=== PATIENT | male | born 1955 | race Caucasian/White ===

== ENCOUNTER 2017-01-29 12:28 | Emergency (ER) | payer BC ==
[~2017-01-29] VITALS: Ht 182.9 cm; Wt 133.8 kg
[~2017-01-29 12:28] MED LIST: ASPIRIN EC81 MG PO; DIOVAN320 MG PO; FLOMAX0.4 MG PO; HYDROCHLOROTHIA25 MG PO; LEVOTHROID200 MCG PO; LEVOTHYROXINE25 MCG PO; PAXIL10 MG PO; PERCOCET 5-3251 EACH PO; VITAMIN D32000 UNIT PO; ZOCOR40 MG PO
[2017-01-29] MEDS ORDERED: NORCO 10-325 T1 EACH PO (14:12)
[2017-01-29] MEDS ORDERED: FLOMAX0.4 MG PO (14:12)
== END 2017-01-29 14:42 | disposition home or self-care (01) ==
LOC: ED 12:28
DX: N13.2 Hydronephrosis with renal and ureteral calculous obstruction (principal); I10 Essential (primary) hypertension; Z87.442 Personal history of urinary calculi; Z91.041 Radiographic dye allergy status; Z88.8 Allergy status to other drugs, medicaments and biological substances; Z79.82 Long term (current) use of aspirin; Z79.899 Other long term (current) drug therapy
CPT/HCPCS: 74176; 80053; 81001; 85025; 96361; 96374; 96375; 99284; J1170; J1885; J2405; J7030

== ENCOUNTER 2017-03-07 16:38 | Emergency (ER) | payer BC ==
[~2017-03-07] VITALS: Ht 182.9 cm; Wt 133.8 kg
[~2017-03-07 16:38] MED LIST changes: +NORCO 10-325 T1 EACH PO
[2017-03-07] MEDS ORDERED: NORCO 10-325 T1 EACH PO (19:13)
[2017-03-07] MEDS ORDERED: FLOMAX0.4 MG PO (19:13)
== END 2017-03-07 19:44 | disposition home or self-care (01) ==
LOC: ED 16:38
DX: N13.2 Hydronephrosis with renal and ureteral calculous obstruction (principal); Z87.442 Personal history of urinary calculi; Z91.041 Radiographic dye allergy status; Z88.8 Allergy status to other drugs, medicaments and biological substances; Z79.899 Other long term (current) drug therapy
CPT/HCPCS: 74176; 80048; 81001; 85025; 96374; 96375; 96376; 99284; J1170; J2405; J7030

== ENCOUNTER 2017-08-06 05:50 | Day surgery (SDC) | payer BC ==
[~2017-08-06] VITALS: Ht 182.9 cm; Wt 136.1 kg
[~2017-08-06 05:50] MED LIST changes: +DOXYCYCLINE HY100 MG PO
--- NOTE | 2017-08-06 08:49 | NUR ---
08/06/17 0849 Ana Walker 0824 PT ARRIVED WITH EYES OPEN AND TALKING, RESP EVEN AND UNLABORED. 0839 O2 REMOVED O2 SAT 100%. PT COUGHING OFF AND ON. AND ENCOURGED TO DEEP BREATH.
--- NOTE | 2017-08-06 09:34 | NUR ---
PT ARRIVES TO DS RM 5 AWAKE AND ALERT. PT DENIES ANY PAIN OR NAUSEA ON ARRIVAL. ICED WATER AND CRACKERS PROVIDED. CALL LIGHT AT PT LEFT SIDE, NO FURTHER C/O'S AT THIS TIME.
[2017-08-06] MEDS ORDERED: CIPRO500 MG PO (09:58)
--- NOTE | 2017-08-06 10:18 | NUR ---
PT RESTING COMFORTABLY, ALERT, ORIENTED AND SUPPORTED BY HIS ARNAV. VERY PLEASANT VISIT, PT HAS DEALT WITH STONES BEFORE. CAME IN, EXTENDED A BLES- SING WILL FOLLOW NEEDED
--- NOTE | 2017-08-06 10:48 | NUR ---
[id number]: PT TOLERATES PO WELL. UP TO BR WITH RN ASSIST. PT AMBULATES WELL AND VOIDS 200 MLS PINK-RED URINE. PT STATES THAT IT "PECK A LITTLE" WHEN VOIDING. DC CRITERIA MET AND , ARNAV CALLED FOR TRANSPORT. PT GIVEN DC INSTRUCTIONS AND ALL QUESTIONS ANSWERED. PT DC'S VIA WHEELCHAIR FROM DS RM 5 WITH VOLUNTEER, ZULEMA.
--- NOTE | 2017-08-08 19:51 | OR ---
[facility] [address], [place] [address] Signed DATE OF OPERATION: 08/06/2017 SURGEON: Aidan Martinez MD PREOPERATIVE DIAGNOSIS: Right ureterolithiasis. POSTOPERATIVE DIAGNOSIS: Right ureterolithiasis, status post successful trial of passage. NAMES OF PROCEDURES: 1. Diagnostic cystoscopy with right retrograde pyelogram. 2. Basket extraction of ureteral calculus from bladder. ANESTHESIA: General. ESTIMATED BLOOD LOSS: None. COMPLICATIONS: None. SPECIMENS: 1.2 cm right ureteral calculus sent to the lab for stone analysis. DRAINS: None. INDICATIONS FOR PROCEDURE: Mr. Hardy is a very pleasant 61-year-old gentleman with a longstanding history of nephrolithiasis. He initially presented to me in February with intermittent bouts of right-sided flank pain. He was found to have an approximately 8 mm right proximal ureteral calculus at that time. He returned to my clinic about a month later stating that he felt as though he had passed the stone. Approximately a month ago, he again reported issues with right-sided flank pain, but denied any fevers or chills. About a week ago, he came to the clinic with an episode of gross hematuria. His urine was sent for culture and revealed no growth. After visiting with him, I was convinced that he had never successfully passed the proximal right ureteral stone seen initially on CAT scan in February . He presents today to undergo ureteroscopy with definitive Electronically Signed By: AIDAN MARTINEZ MD 08/08/171950 PATIENT NAME: DEANN HARDY OPERATIVE REPORT DATE OF : 51 REPORT #: [id number] PHYSICIAN: AIDAN MARTINEZ MD PCP: Shamika PEREZ MD REPORT IS CONFIDENTIAL AND NOT TO BE RELEASED WITHOUT AUTHORIZATION [facility] [address], [place] [address] Signed stone extraction. OPERATIVE FINDINGS: 1. On cystoscopy, there was no evidence of any suspicious masses or lesions within the bladder. Bilateral ureteral orifices are in the normal anatomic location. The right ureteral orifice appears ecchymotic and swollen, suggesting recent passage of a stone. Present within the bladder is an approximately 1 cm oblong shaped stone. This stone was extracted from the bladder using an Escape basket without difficulty. 2. A right retrograde pyelogram was performed, which revealed no evidence of any filling defect within the entire right ureter that would suggest any residual obstruction. DESCRIPTION OF PROCEDURE: After informed consent was obtained, the patient was taken back to the operating room. He was transferred from the [facility] the [facility] to the operating room table, where general anesthesia was induced. He was placed in the dorsal lithotomy position and his genitalia were prepped and draped in a standard sterile fashion. Using a 30-degree lens on a 22-Faroese introducer, rigid cystoscope was inserted through his urethra and into his bladder under direct visualization. Panendoscopic views of the bladder were then obtained. Please see the findings. I visualized the stone immediately that was located within the bladder. A Zero Tip basket was used to grasp the stone, which was then removed from the bladder and placed in a specimen cup. I reinserted the cystoscope and then advanced a cone-tipped catheter and then performed a right retrograde pyelogram. Please see above findings. Once I was satisfied that there was no evidence of any remaining obstruction within the right ureter, I drained the patient's bladder and removed the cystoscope. The procedure was then terminated. The patient tolerated the procedure well without any complication. He will now be transferred to the postanesthesia care unit in stable condition. MD JOAN Deng/JOSEPL /[id number] Copies: Electronically Signed By: AIDAN MARTINEZ MD 08/08/171950 PATIENT NAME: DEANN HARDY OPERATIVE REPORT DATE OF : 51 REPORT #: [id number] PHYSICIAN: AIDAN MARTINEZ MD PCP: Shamika PEREZ MD REPORT IS CONFIDENTIAL AND NOT TO BE RELEASED WITHOUT AUTHORIZATION [address] [place] [address] Signed ~ Electronically Signed By: AIDAN MARTINEZ MD 08/08/171950 PATIENT NAME: DEANN HARDY OPERATIVE REPORT DATE OF : 51 REPORT #: [id number] PHYSICIAN: AIDAN MARTINEZ MD PCP: Shamika PEREZ MD REPORT IS CONFIDENTIAL AND NOT TO BE RELEASED WITHOUT AUTHORIZATION
== END 2017-08-06 10:50 | disposition home or self-care (01) ==
LOC: DS 05:50
PROVIDERS: Urology
PROC: 0TCB8ZZ Extirpation of Matter from Bladder, Via Natural or Artificial Opening Endoscopic (ICD-10-PCS; principal; 2017-08-06 06:45)
PROC: BT1DYZZ Fluoroscopy of Right Kidney, Ureter and Bladder using Other Contrast (ICD-10-PCS; 2017-08-06 06:45)
DX: N20.1 Calculus of ureter (principal); E03.9 Hypothyroidism, unspecified; I10 Essential (primary) hypertension; E78.5 Hyperlipidemia, unspecified; G47.30 Sleep apnea, unspecified; F17.220 Nicotine dependence, chewing tobacco, uncomplicated; Z91.041 Radiographic dye allergy status; Z79.82 Long term (current) use of aspirin; Z79.899 Other long term (current) drug therapy; Z79.2 Long term (current) use of antibiotics
CPT/HCPCS: 00910; 36415; 74420; 80048; 82365; C1889; J0330; J0696; J1100; J2250; J2405; J2704; J3010; J7120; Q9967

== ENCOUNTER 2023-02-20 09:24 | Day surgery (SDC) | payer MEDICARE, BC ==
[2023-02-15 11:26] VITALS: BP 131/75
[~2023-02-20] VITALS: Ht 182.9 cm; Wt 150.0 kg
[~2023-02-20 09:24] MED LIST changes: +ALLOPURINOL100 MG PO; +ATORVASTATIN CA40 MG PO; +CELEBREX200 MG PO; +CENTRUM SILVER1 EAC9 PO; +CIPRO500 MG PO; +FLONASE ALLERG9.9 ML NAS; +FLUOCINONIDE60 ML TOP; +GLUCOSAMINE SU750 MG PO; +HYDROCODON-ACE1 EA10 PO; +KETOCONAZOLE120 ML TOP; +LOSARTAN POTAS100 MG PO; +MAGNESIUM250 M1 PO; +MINOCYCLINE HC100 MG PO; +PERMETHRIN60 GM TOP; +TURMERIC CURCU500 MG PO; +[UNRECOGNIZED DRUG - OTHER] TOP
[2023-02-20 09:39] VITALS: BP 146/81
[2023-02-20 12:16] VITALS: BP 144/89
--- NOTE | 2023-02-20 12:48 | NUR ---
02/20/23 1248 Carmen Murillo 1153 PT ARRIVED IN PACU WIDE AWAKE WITH NO C/O'S. ABD SOFT. 1209 DR AT BEDSIDE. ALL QUESTIONS ANSWERED. 1215 PT SITTING AT BEDSIDE GETTING DRESSED. 1220 DC INSTRUCTIONS GIVEN. 1225 LEFT VIA W/C.
--- NOTE | 2023-02-21 12:17 | PATH ---
[facility] [address] [facility] [place], [place] [address] Signed SPECIMEN(S): A SIGMOID POLYP SPECIMEN(S): B SIGMOID POLYP SPECIMEN(S): C SIGMOID POLYP SPECIMEN SOURCE: A. SIGMOID POLYP B. SIGMOID POLYP C. SIGMOID POLYP CLINICAL HISTORY: + Cologuard. Post: Polyps, diverticulosis. FINAL PATHOLOGIC DIAGNOSIS: A. Sigmoid polyp: - Hyperplastic polyp (one fragment). B. Sigmoid polyp: - Hyperplastic polyp (two fragments). C. Sigmoid polyp: - Hyperplastic polyp (two fragments). JVR:gregg MICROSCOPIC EXAMINATION: Histologic sections of all submitted blocks are examined by light microscopy. These findings, together with the gross examination, support the pathologic diagnosis. GROSS DESCRIPTION: A. The specimen, labeled and designated "Hardy, sigmoid colon polyp #1," is received in formalin and consists of three marsh soft tissue fragments, ranging from 0.1 cm. Entirely submitted in (A1). B. The specimen, labeled and designated "Hardy, sigmoid colon polyp #2," is received in formalin and consists of three marsh soft tissue fragments, ranging from 0.1-0.2 cm. Entirely submitted in (B1). C. The specimen, labeled and designated "Hardy, sigmoid colon polyp #3," is received in formalin and consists of two marsh soft tissue fragments, ranging from 0.2 cm. Entirely submitted in (C1). JS (under the direct supervision of a pathologist) The Gross Description was prepared using a voice recognition system. The report was reviewed for accuracy; however, sound-alike word errors, addition and/or deletions may occur. If there is any question about this report, please contact Client Services. PATIENT NAME: DEANN HARDY PATHOLOGY DATE OF : 51 REPORT #: [id number] PHYSICIAN: VIRGILIO PATHOLOGY PCP: CALE HICKS MD REPORT IS CONFIDENTIAL AND NOT TO BE RELEASED WITHOUT AUTHORIZATION [facility] [address] [facility] [place], [place] [address] Signed PERFORMING LABORATORY: Technical component was performed by [facility], [address] [place] [address] (CLIA# [id number]). Professional interpretation was performed by [facility] - [address] [address] (CLIA#: [id number]). Diagnostician: Cody Estevez MD Pathologist Electronically Signed 02/21/2023 Copies: ~ PATIENT NAME: DEANN HARDY PATHOLOGY DATE OF : 51 REPORT #: [id number] PHYSICIAN: VIRGILIO PATHOLOGY PCP: CALE HICKS MD REPORT IS CONFIDENTIAL AND NOT TO BE RELEASED WITHOUT AUTHORIZATION
--- NOTE | 2023-02-21 13:13 | OR ---
[facility] [address] [place], [place] [address] Signed DATE OF OPERATION: 02/20/2023 SURGEON: Tere Moreau MD PREOPERATIVE DIAGNOSES: 1. Positive Cologuard test. 2. Multiple medical problems. POSTOPERATIVE DIAGNOSES: 1. Small polyps x4, sigmoid and left colon. 2. Diverticulosis. PROCEDURE: Total colonoscopy to cecum with cold morcellation polypectomy x4. ANESTHESIA: Intravenous sedation, propofol infusion, [place], OB/GYN NURSE. INDICATION: This 67-year-old white man is a patient of Dr. Thomason. He is known to me from the past. He does have an umbilical hernia which has not yet been repaired. He underwent colonoscopy in 2012 at which time, he had a normal colon. He is referred for colonoscopy on the basis of recent positive Cologuard test performed under the direction of Dr. Thomason. He has no family history of colon cancer and no symptoms of bleeding, diarrhea or constipation. The patient does have numerous underlying medical problems including obesity weighing 310 pounds and an umbilical hernia and other problems. He is admitted to undergo colonoscopy on the basis of the positive Cologuard test. He understands the risk of bleeding, infection, and perforation. FINDINGS: The prep was good. Complete colonoscopy was undertaken to the cecum. Full intubation of the cecum was accomplished. He had diverticula of the sigmoid and left colon that were scattered and not intense. There was no sign of stricture. He had four small polyps extending from the sigmoid to the proximal rectum, all excised with cold morcellation technique. DESCRIPTION OF PROCEDURE: The patient was brought to the endoscopy suite and placed in the lateral decubitus position, given intravenous sedation to the point of slurred speech and nystagmus. Digital rectal examination was normal. Electronically Signed By: TERE MOREAU MD 02/21/23 1313 PATIENT NAME: DEANN HARDY OPERATIVE REPORT DATE OF : 51 REPORT #: [id number] PHYSICIAN: TERE MOREAU MD PCP: DEIDRA THOMASON MD REPORT IS CONFIDENTIAL AND NOT TO BE RELEASED WITHOUT AUTHORIZATION [facility] [address] [place], [place] [address] Signed An Olympus video colonoscope was passed in the rectum and manipulated throughout the colon. Numerous diverticula were noted in the sigmoid and left colon, but none extensive enough to cause stricture narrowing. The scope was ultimately passed to the cecum. The ileocecal valve was easily identified. Scope was then withdrawn. Examination undertaken showed no sign of abnormality until the left colon where diverticula were once again noted. There were four small polyps in aggregate which were excised from the sigmoid and proximal rectum. They were labeled appropriately. Retroflexed view of the rectum was normal. Scope was removed and the patient was taken to the recovery room in good condition. CONCLUDING DIAGNOSIS: Small polyps of sigmoid and left colon, completely excised. PLAN: Recommend repeat colonoscopy in 5 years, sooner if clinically indicated. The patient will return to the ongoing care of Dr. Thomason. MD MICK Bustos/SHARIFA /[id number] cc: Deidra Thomason MD Copies: ~ Electronically Signed By: TERE MOREAU MD 02/21/23 1313 PATIENT NAME: DEANN HARDY OPERATIVE REPORT DATE OF : 51 REPORT #: [id number] PHYSICIAN: TERE MOREAU MD PCP: DEIDRA THOMASON MD REPORT IS CONFIDENTIAL AND NOT TO BE RELEASED WITHOUT AUTHORIZATION
== END 2023-02-20 12:25 | disposition home or self-care (01) ==
LOC: DS 09:24 → OPS 09:24 → DS 10:00 → OPS 10:45
PROVIDERS: ATTEND Surgery
PROC: 0DBN8ZZ Excision of Sigmoid Colon, Via Natural or Artificial Opening Endoscopic (ICD-10-PCS; 2023-02-20)
PROC: 0DBP8ZZ Excision of Rectum, Via Natural or Artificial Opening Endoscopic (ICD-10-PCS; 2023-02-20)
PROC: 0DBG8ZZ Excision of Left Large Intestine, Via Natural or Artificial Opening Endoscopic (ICD-10-PCS; principal; 2023-02-20 11:00)
DX: Z12.11 Encounter for screening for malignant neoplasm of colon (principal); K63.5 Polyp of colon; N40.1 Benign prostatic hyperplasia with lower urinary tract symptoms; I10 Essential (primary) hypertension; E66.01 Morbid (severe) obesity due to excess calories; Z68.41 Body mass index [BMI] 40.0-44.9, adult; K57.30 Diverticulosis of large intestine without perforation or abscess without bleeding
CPT/HCPCS: 00811; 88305; J2001; J2704; J3010; J7121

== ENCOUNTER 2024-05-26 06:53 | Day surgery (SDC) | payer MEDICARE, BC ==
[2024-05-22 09:22] VITALS: BP 123/80
[~2024-05-26] VITALS: Ht 182.9 cm; Wt 124.5 kg
[~2024-05-26 06:53] MED LIST changes: +DEXAMETHASONE SOD PHOS 4 MG/ML VIAL ONE; +FAMOTIDINE 20 MG/ 2 ML VIAL ONE; +KETOROLAC TROMETHAMINE 30 MG/ML VIAL ONE; +LACTATED RINGER'S 1,000 ML IV ONE; +LACTATED RINGER'S 1,000 ML IV SCH; +METOCLOPRAMIDE HCL 10 MG/2 ML SDV ONE; +MIDAZOLAM HCL 2 MG/2 ML VIAL ONE; +fentaNYL citrate 100 MCG/2 ML VIAL ONE; +ondansetron HCL 4 MG/2 ML VIAL ONE; +propofoL 200 MG/20 ML VIAL ONE
[2024-05-26] MEDS ORDERED: CEFAZOLIN SODIUM 3 GM/30 ML SYR IV SCH (07:00)
[2024-05-26] MEDS ORDERED: LIDOCAINE HCL 1% 5 ML SDV INJ ONE (07:00)
[2024-05-26] MEDS ORDERED: IBLOOD GLUCOSE TEST STRIP 1 EA TEST VI PRN ×2 (07:00→11:30)
[2024-05-26] MEDS ORDERED: HYDROmorphone HCL 1 MG/ML SYR IV PRN (07:45)
[2024-05-26] MEDS ORDERED: OXYCODONE/APAP 5/325 TAB PO PRN (07:45)
[2024-05-26] MEDS ORDERED: KETOROLAC TROMETHAMINE 15 MG/ML VIAL IV PRN (07:45)
[2024-05-26] MEDS ORDERED: PHENAZOPYRIDINE HCL 100 MG TAB PO PRN (07:45)
[2024-05-26] MEDS ORDERED: ondansetron HCL 4 MG/2 ML VIAL IV PRN ×2 (07:45→11:30)
[2024-05-26] MEDS ORDERED: SEVOFLURANE 250 ML BTL INH ONE (07:50)
[2024-05-26 08:41] VITALS: BP 135/82
[2024-05-26] MEDS ORDERED: WEGOVY1 MG/0.5 M SQ (08:49)
[2024-05-26] MEDS ORDERED: iopamidoL 30 ML VIAL ONE ×2 (10:53→11:48)
[2024-05-26] MEDS ORDERED: LIDOCAINE HCL 4% 5 ML AMP ONE (11:18)
[2024-05-26] MEDS ORDERED: SUCCINYLCHOLINE IN 0.9% NACL 200 MG/10 ML SYRINGE ONE (11:18)
[2024-05-26] MEDS ORDERED: NALOXONE HCL 0.4 MG SYR IV PRN (11:30)
[2024-05-26] MEDS ORDERED: droPERidol 5 MG/2 ML VIAL IV PRN (11:30)
[2024-05-26] MEDS ORDERED: METOCLOPRAMIDE HCL 10 MG/2 ML SDV IV PRN (11:30)
[2024-05-26] MEDS ORDERED: MORPHINE SULFATE 10 MG/ML VIAL IV PRN (11:30)
[2024-05-26] MEDS ORDERED: PROCHLORPERAZINE EDISYLATE 10 MG/2 ML VIAL IV PRN (11:30)
[2024-05-26] MEDS ORDERED: fentaNYL citrate 50 MCG/ML SDV IV PRN (11:30)
[2024-05-26] MEDS ORDERED: SEVOFLURANE 250 ML BTL ONE (12:02)
[2024-05-26] MEDS ORDERED: FLUORESCEIN SODIUM 500 MG/5 ML ML ONE (12:29)
[2024-05-26] MEDS ORDERED: LACTATED RINGER'S 1,000 ML IV ONE (12:52)
[2024-05-26] MEDS ORDERED: FUROSEMIDE 40 MG/4 ML VIAL ONE (13:06)
--- NOTE | 2024-05-26 13:42 | NUR ---
05/26/24 1342 Tena Reid 1317-PT ARRIVES TO PACU VIA STRETCHER, RESTING SEMI FOWLERS, PT NOT RESPONISVE TO NOXIOUS STIMULI. VSS ON 15L VIA MASK, OPA IN PLACE. 1321-PT AWAKENS TO VOICE, OPA REMOVED AND PT TITRATED TO RA. VS REMAIN STABLE.
[2024-05-26 14:09] VITALS: BP 145/80
--- NOTE | 2024-05-26 14:10 | NUR ---
Patient returns to treatment room from PACU. Report taken from CHERYL Madsen. Patient is complaining of pain to his right flank, throat, and penis/urethra. Patient has already urinated in PACU. Patient has a urinal in place. He has a stent to the right ureter with the string attached to his thigh. Vital signs obtained. He states that he does not feel nauseous. water and jell-o provided to ensure patient is able to keep water/food down before I give him oral pain medication. Patient was able to keep it all down, so oral medication was given. Patient denies any other needs at this time. Call light within reach. patient is sitting on the edge of the bed as this is most comfortable for him at the moment.
[2024-05-26 15:03] VITALS: BP 150/77
[2024-05-26] MEDS ORDERED: OXYCODONE HCL5 MG PO (15:26)
[2024-05-26] MEDS ORDERED: CIPRO500 MG PO (15:26)
--- NOTE | 2024-05-26 16:15 | NUR ---
Hourly rounding on patient. Patient's is here to pick and shovel worker the patient. Patient asked for me to review discharge instructions with his as he feels like he is unable to focus long enough to fully understand. IV is already out. Patient has met all criteria including, ambulating, voiding, eating, and drinking. He states that his pain is at a tolerable level. Patient was discharged via wheelchair and discharge instructions were reviewed with the patient's . All questions were answered.
[2024-05-26 16:30] VITALS: BP 170/90
[2024-05-29 15:47] LABS: CALCULI MASS 28 mg (())
== END 2024-05-26 16:25 | disposition home or self-care (01) ==
LOC: DS 06:53
PROVIDERS: ATTEND Urology
PROC: 0TJ98ZZ Inspection of Ureter, Via Natural or Artificial Opening Endoscopic (ICD-10-PCS; 2024-05-26)
PROC: 0TC38ZZ Extirpation of Matter from Right Kidney Pelvis, Via Natural or Artificial Opening Endoscopic (ICD-10-PCS; principal; 2024-05-26 10:20)
PROC: 0T768DZ Dilation of Right Ureter with Intraluminal Device, Via Natural or Artificial Opening Endoscopic (ICD-10-PCS; 2024-05-26 10:20)
DX: N20.2 Calculus of kidney with calculus of ureter (principal); I12.9 Hypertensive chronic kidney disease with stage 1 through stage 4 chronic kidney disease, or unspecified chronic kidney disease; N18.2 Chronic kidney disease, stage 2 (mild); E78.5 Hyperlipidemia, unspecified; E03.9 Hypothyroidism, unspecified; Z87.442 Personal history of urinary calculi; Z79.82 Long term (current) use of aspirin; Z79.890 Hormone replacement therapy; Z79.1 Long term (current) use of non-steroidal anti-inflammatories (NSAID); Z79.899 Other long term (current) drug therapy; Z91.041 Radiographic dye allergy status
CPT/HCPCS: 00910; 74420; 82365; C1769; C2617; J0330; J0690; J1100; J1885; J1940; J2250; J2405; J2704; J2765; J3010; J7121; Q9967

== ENCOUNTER 2024-06-30 05:42 | Day surgery (SDC) | payer MEDICARE, BC ==
[2024-06-24 13:06] VITALS: BP 140/85
[~2024-06-30] VITALS: Ht 182.9 cm; Wt 122.7 kg
[2024-06-30] VITALS (7 sets, daily range): BP systolic 121–158; BP diastolic 59–79
[~2024-06-30 05:42] MED LIST changes: -DEXAMETHASONE SOD PHOS 4 MG/ML VIAL ONE; -FAMOTIDINE 20 MG/ 2 ML VIAL ONE; -KETOROLAC TROMETHAMINE 30 MG/ML VIAL ONE; -LACTATED RINGER'S 1,000 ML IV ONE; -METOCLOPRAMIDE HCL 10 MG/2 ML SDV ONE; -MIDAZOLAM HCL 2 MG/2 ML VIAL ONE; +OXYCODONE HCL5 MG PO; +WEGOVY1 MG/0.5 M SQ; -fentaNYL citrate 100 MCG/2 ML VIAL ONE; -ondansetron HCL 4 MG/2 ML VIAL ONE; -propofoL 200 MG/20 ML VIAL ONE
[2024-06-30] MEDS ORDERED: Ropivacaine HCl 20 MG/10 ML AMP ONE (06:12)
[2024-06-30] MEDS ORDERED: MIDAZOLAM HCL 2 MG/2 ML VIAL ONE (06:22)
[2024-06-30] MEDS ORDERED: SODIUM CHLORIDE 0.9% 40 ML IV ONE (06:22)
[2024-06-30] MEDS ORDERED: Ropivacaine HCl 0.5% 30 ML VIAL ONE (06:22)
[2024-06-30] MEDS ORDERED: dexmedeTOMIDine HCl 200 MCG/2 ML VIAL ONE (06:23)
[2024-06-30] MEDS ORDERED: propofoL 200 MG/20 ML VIAL ONE ×2 (06:23→08:20)
[2024-06-30] MEDS ORDERED: LIDOCAINE HCL 2% 5 ML SDV ONE (06:23)
[2024-06-30] MEDS ORDERED: DEXAMETHASONE SOD PHOS 4 MG/ML VIAL ONE ×2 (06:23→07:30)
[2024-06-30] MEDS ORDERED: ondansetron HCL 4 MG TAB PO SCH (07:00)
[2024-06-30] MEDS ORDERED: OXYCODONE HCL 5 MG TAB PO PRN (07:00)
[2024-06-30] MEDS ORDERED: PANTOPRAZOLE SODIUM 40 MG TABEC PO SCH (07:00)
[2024-06-30] MEDS ORDERED: LIDOCAINE HCL 1% 5 ML SDV INJ ONE (07:00)
[2024-06-30] MEDS ORDERED: TRANEXAMIC ACID IN NACL,ISO-OS 1,000 MG/100 ML PIGGYBACK IV SCH ×2 (07:00→09:52)
[2024-06-30] MEDS ORDERED: ROPIVACAINE IN 0.9% SOD CHL/PF 545 ML ELS.PMP.HR IRRIGATION SCH (07:00)
[2024-06-30] MEDS ORDERED: INTRA-ARTICULAR ANALGESIC INJECTION XX SCH (07:00)
[2024-06-30] MEDS ORDERED: GABAPENTIN 600 MG TAB PO SCH (07:00)
[2024-06-30] MEDS ORDERED: IBLOOD GLUCOSE TEST STRIP 1 EA TEST VI PRN ×2 (07:00→08:45)
[2024-06-30] MEDS ORDERED: KETOROLAC TROMETHAMINE 30 MG/ML VIAL IV PRN (07:00)
[2024-06-30] MEDS ORDERED: OXYCODONE HCL 5 MG TAB PO SCH (07:00)
[2024-06-30] MEDS ORDERED: CEFAZOLIN SODIUM 3 GM/30 ML SYR IV SCH ×2 (07:00→15:00)
[2024-06-30] MEDS ORDERED: ACETAMINOPHEN 1,000 MG/100 ML VIAL ONE (07:07)
--- NOTE | 2024-06-30 07:32 | NUR ---
PT NOT AVAILABLE. PROVIDED PRAYER.
[2024-06-30] MEDS ORDERED: TRANEXAMIC ACID 1,000 MG/10 ML AMP ONE (07:44)
[2024-06-30] MEDS ORDERED: ePHEDrine sulfate 50 MG/ML AMP ONE (08:08)
[2024-06-30] MEDS ORDERED: CELECOXIB200 MG PO (08:44)
[2024-06-30] MEDS ORDERED: CEFUROXIME250 MG PO (08:44)
[2024-06-30] MEDS ORDERED: OXYCODONE HCL5 MG PO (08:44)
[2024-06-30] MEDS ORDERED: ACETAMINOPHEN500 MG PO (08:44)
[2024-06-30] MEDS ORDERED: SENNA LAX8.6 MG PO (08:44)
[2024-06-30] MEDS ORDERED: GABAPENTIN300 MG PO (08:44)
[2024-06-30] MEDS ORDERED: NALOXONE HCL 0.4 MG SYR IV PRN (08:45)
[2024-06-30] MEDS ORDERED: fentaNYL citrate 50 MCG/ML SDV IV PRN (08:45)
[2024-06-30] MEDS ORDERED: ondansetron HCL 4 MG/2 ML VIAL IV PRN (08:45)
[2024-06-30] MEDS ORDERED: XARELTO10 MG PO (08:45)
[2024-06-30] MEDS ORDERED: ASPIRIN 325 MG TAB PO SCH (09:00)
--- NOTE | 2024-06-30 09:16 | NUR ---
06/30/24 0916 Tena Reid 0853-PT ARRIVES TO PACK SITTING UP IN BED, PT A+O X4, DENIES PAIN OR NAUSEA, VSS ON 6L VIA MASK, RR EVEN AND UNLABORED. 0855-PT TITRATED TO RA, VS REMAIN STABLE. 0905-MENS LOCKER ROOM ATTENDANT AT BEDSIDE FOR POST OP RT KNEE X-RAY. PT SIPPING ON WATER, DENIES PAIN OR NAUSEA. CRYO CUFF APPLIED TO RT KNEE.
--- NOTE | 2024-06-30 09:31 | NUR ---
0922-PT BACK TO ROOM FROM PACU ON RA. RECEIVED REPORT FROM PREMA LUNA. PT IS AWAKE. RESP EVEN AND UNLABORED. DENIES PAIN AND NAUSEA. ON-Q PUMP SET AT 4. CRYO CUFF IN PLACE AND RUNNING. PT DRINKING WATER. PROVIDED PT WITH JELLO. NO OTHER NEEDS AT THIS TIME. CALL LIGHT WITHIN REACH.
--- NOTE | 2024-06-30 10:41 | NUR ---
1022-PT IS DROWSY. RESP EVEN AND UNLABORED. PT DENIES PAIN AND NAUSEA. ON-Q PUMP SET AT 4. CRYO CUFF IN PLACE AND RUNNING. PT DRINKING WATER. NO OTHER NEEEDS AT THIS TIME. CALL LIGHT WITHIN REACH.
--- NOTE | 2024-06-30 11:14 | NUR ---
1049-PT STATES "EVERYTHING IS WAKING UP". RATES PAIN /. PAIN MEDICATION GIVEN PER EMAR. PT STATES HE NORMALLY TAKES 2 TABS. SECOND TAB GIVEN AT 1052. NO OTHER NEEDS AT THIS TIME. CALL LIGHT WITHIN REACH.
--- NOTE | 2024-06-30 11:38 | OR ---
[facility] [address] [place], [place] [address] Signed DATE OF OPERATION: 06/30/2024 SURGEON: Brian Prince MD PREOPERATIVE DIAGNOSIS: Severe degenerative joint disease. right knee. POSTOPERATIVE DIAGNOSIS: Severe degenerative joint disease. right knee. PROCEDURE PERFORMED: Right total knee arthroplasty with Jass. AIRLINE FLIGHT ATTENDANT: Michelle Palomino PA-C. Michelle was present and critical for all portions of procedure. ANESTHESIA: Spinal. BLOOD LOSS: 195 mL. TOURNIQUET TIME: Zero. IMPLANTS: Larisa Triathlon size 6, 10 mm polyethylene, 35 mm patella. BRIEF HISTORY: Dillon is a 68-year-old gentleman with progressive worsening of arthritis and valgus deformity in his knee. Risks and benefits of operative treatment were discussed with him and he elected to proceed. DESCRIPTION OF PROCEDURE: Once consent was obtained, he was taken to the operating room. After adequate anesthesia, he was placed on the operating table with the right hip bump. The leg was then prepped and draped in a standard sterile fashion. The knee was approached through a standard anterior midline approach, taken through the skin and subcutaneous tissue. The midvastus arthrotomy was performed and the infrapatellar fat pad was excised. The Electronically Signed By: BRIAN PRINCE MD 06/30/24 1138 PATIENT NAME: DEANN HARDY OPERATIVE REPORT DATE OF : 51 REPORT #: [id number] PHYSICIAN: BRIAN PRINCE MD PCP: CALE HICKS MD REPORT IS CONFIDENTIAL AND NOT TO BE RELEASED WITHOUT AUTHORIZATION [facility] [address] [place], [place] [address] Signed MCL was elevated as a sleeve around to the mid medial portion. The anterior horns of the menisci were transected as was the ACL. The PCL was found to be intact. The navigation computer arrays were then placed in the distal femur and proximal tibia. The leg was then registered with computer followed by the fine anatomic points of the knee. Varus valgus testing was undertaken and found to be slightly tight laterally. Adjustments were made to the prosthesis and the robot was brought in. The four straight cuts and two angled cuts were made with care taken to protect the patellar tendon and MCL. The bony remnants were removed as were any remaining osteophytes. The posterior release was performed of the femur, particularly laterally. The posterior osteophytes were removed. The trials were then positioned. knee was taken from 0 to 130 degrees of flexion with good stability throughout. the patella tracked well. The patella was then cut sized and drilled for a 35 mm patella. The distal femoral drill holes were completed. The proximal tibia was finished using the keel punch followed by the drill. The prosthesis was obtained and the operative team changed gloves. The tibia was impacted until it was seated flush. The polyethylene was snapped into position and the femur was impacted until it was seated. The knee was then extended and loaded. The patella was clamped into position again until it was seated flushed with the . The knee was taken through range of motion, found to be stable and the patella tracked well. The knee was then copiously irrigated with Surgiphor followed by normal saline. The periarticular soft tissues were injected with 100 mL of ropivacaine and Toradol mixture. The On-Q pain pump was percutaneously placed into the adductor canal from the suprapatellar pouch. The arthrotomy was then closed using combination of #2 FiberWire and #2 Stratafix, subcutaneous tissue with 0 Stratafix and the skin with 3-0 Stratafix. Wound was sealed with LiquiBand and Steri-Strips and was dressed with Acticoat-7 dressing, ABDs and Alex wrap. He tolerated the procedure well. All sponge, needle, and instrument counts were correct. Brian Prince MD BA/MODL /[id number] Electronically Signed By: BRIAN PRINCE MD 06/30/24 1138 PATIENT NAME: DEANN HARDY OPERATIVE REPORT DATE OF : 51 REPORT #: [id number] PHYSICIAN: BRIAN PRINCE MD PCP: CALE HICKS MD REPORT IS CONFIDENTIAL AND NOT TO BE RELEASED WITHOUT AUTHORIZATION [address] [address] Signed Copies: ~ Electronically Signed By: BRIAN PRINCE MD 06/30/24 1138 PATIENT NAME: ANTONYDEANNBOOKER LINARES OPERATIVE REPORT DATE OF : 51 REPORT #: [id number] PHYSICIAN: BRIAN PRINCE MD PCP: CALE HICKS MD REPORT IS CONFIDENTIAL AND NOT TO BE RELEASED WITHOUT AUTHORIZATION
--- NOTE | 2024-06-30 11:41 | NUR ---
LE 1127-PT IS DROWSY. RESP EVEN AND UNLABORED. RATES PAIN 5/10 AND STATES THIS IS TOLERABLE. DENIES NAUSEA. ON-Q PUMP SET AT 4. CRYO CUFF IN PLACE AND RUNNING. NO OTHER NEEDS AT THIS TIME. CALL LIGHT WITHIN REACH.
--- NOTE | 2024-06-30 12:38 | NUR ---
PT IS LAYING IN BED WITH EYES CLOSED. PT AWAKES EASILY TO VERBAL STIMULI. RESP EVEN AND UNLABORED. RATES PAIN 4/10 AND STATES THIS IS TOLERABLE AT THIS TIME DENIES NAUSEA. CRYO CUFF IN PLACE AND RUNNING. ON-Q PUMP SET AT 4. NO OTHER NEEDS AT THIS TIME. CALL LIGHT WITHIN REACH.
--- NOTE | 2024-06-30 13:42 | NUR ---
1310-PT VOIDS 400ML AT BEDSIDE WITH URINAL. 1328-PT IS DROWSY. RESP EVEN AND UNLABORED. RATES PAIN 3/10. DENIES NAUSEA. CRYO CUFF IN PLACE AND RUNNING. ON-Q PUMP SET AT 4. CALL LIGHT WITHIN REACH. 1330-PHYSICAL THERAPY IN ROOM WITH PT.
[2024-06-30] MEDS ORDERED: ACETAMINOPHEN 500 MG TAB PO SCH (15:00)
[2024-06-30] MEDS ORDERED: GABAPENTIN 300 MG CAP PO SCH (15:00)
--- NOTE | 2024-06-30 15:40 | NUR ---
1500-PT BACK IN ROOM FROM PT. 1515-PT LAYING IN BED. RESP EVEN AND UNLABORED. RATES PAIN 4/10. DENIES NAUSEA. PT IS READY TO GO HOME. PT WILL GET DRESSED WITH THE HELP OF THIS RN.
--- NOTE | 2024-06-30 16:06 | NUR ---
1532-WENT OVER DISCHARGE INSTRUCTIONS WITH PT. WENT OVER POSTOP MEDICATIONS IN DETAIL. ALL QUESTIONS ANSWERED. PT DEMONSTRATED HOW TO USE INCENTIVE SPIROMETER. RIDE WILL BE HERE SHORTLY TO PICK PT UP. 1555-PT AMBULATES TO WHEELCHAIR AND RIDE GIVEN TO FRONT OF HOSPITAL WHERE HIS RIDE WAS WAITING WITH THE CAR.
[2024-06-30] MEDS ORDERED: SENNOSIDES 1 TAB PO SCH (21:00)
[2024-06-30] MEDS ORDERED: TAMSULOSIN HCL 0.4 MG CAP PO SCH (21:00)
[2024-07-01] MEDS ORDERED: CELECOXIB 200 MG CAP PO SCH (08:00)
[2024-07-01] MEDS ORDERED: cefuroxime axetiL 250 MG TAB PO SCH (09:00)
== END 2024-06-30 15:32 | disposition home or self-care (01) ==
LOC: DS 05:42
PROVIDERS: ATTEND Specialist
PROC: 0SRC0JZ Replacement of Right Knee Joint with Synthetic Substitute, Open Approach (ICD-10-PCS; principal; 2024-06-30 07:00)
DX: M17.11 Unilateral primary osteoarthritis, right knee (principal); M21.061 Valgus deformity, not elsewhere classified, right knee; I10 Essential (primary) hypertension; E78.00 Pure hypercholesterolemia, unspecified; E03.9 Hypothyroidism, unspecified; Z79.890 Hormone replacement therapy; Z79.82 Long term (current) use of aspirin; Z79.1 Long term (current) use of non-steroidal anti-inflammatories (NSAID); Z79.899 Other long term (current) drug therapy
CPT/HCPCS: 01400; 64447; 64450; 64454; 73560; 76942; 97110; 97161; 97530; A9270; C1713; C1776; J0131; J0690; J1100; J2003; J2250; J2704; J2795; J7121; J7999

== ENCOUNTER 2025-01-01 11:01 | Emergency (ER) | payer MEDICARE, BC ==
[~2025-01-01] VITALS: Ht 182.9 cm; Wt 129.0 kg
[~2025-01-01 11:01] MED LIST changes: +ACETAMINOPHEN500 MG PO; +CEFUROXIME250 MG PO; +CELECOXIB200 MG PO; +GABAPENTIN300 MG PO; -LACTATED RINGER'S 1,000 ML IV SCH; +SENNA LAX8.6 MG PO; +XARELTO10 MG PO
[2025-01-01] MEDS ORDERED: ASPIRIN 325 MG TAB PO ONE (11:15)
[2025-01-01] MEDS ORDERED: ASPIRIN 81 MG CHEW PO ONE (11:15)
[2025-01-01] MEDS ORDERED: DOXYCYCLINE HY100 M3 PO (11:21)
[2025-01-01 11:38] LABS: BASOPHILS 0.7 % (0.2-1.2); EOSINOPHILS 5.4 % (0.8-7.0); LYMPHOCYTES 34.5 % (21.8-53.1); MCH 33.7 PG (25.7-32.2); MCHC 34.3 g/dL (32.3-36.5); MCV 98.2 fL (79.0-92.2); MONOCYTES 9.5 % (5.3-12.2); NEUTROPHILS 49.5 % (34.0-67.9); RBC 4.48 M/uL (4.63-6.08)
[2025-01-01 11:58] LABS: ALT (SGPT) 41.0 U/L (14-59); AST (SGOT) 26.0 U/L (15-37); GLOMERULAR FILTRATION RATE,EST 79.0 mL/min (>60); PROTEIN, TOTAL 6.7 g/dL (6.4-8.2); UREA NITROGEN 26.0 mg/dL (7-18)
[2025-01-01] MEDS ORDERED: OMEPRAZOLE40 MG PO (13:36)
[2025-01-01 13:45] VITALS: BP 143/91
--- NOTE | 2025-01-02 19:50 | EKG ---
[facility] [address] [facility] [place] [address] Signed Sinus rhythm with marked sinus arrhythmia Otherwise normal ECG No previous ECGs available Confirmed by Luis Raya DO ([id number]) on 01/02/2025 7:49:54 PM Electronically Signed By: LUIS RAYA DO 01/02/25 1950 PATIENT NAME: DEANN HARDY Electrocardiogram DATE OF : 51 PHYSICIAN: LUIS RAYA DO REPORT #: [id number] REPORT IS CONFIDENTIAL AND NOT TO BE RELEASED WITHOUT AUTHORIZATION
== END 2025-01-01 13:45 | disposition home or self-care (01) ==
LOC: ED 11:01
PROVIDERS: Emergency Medicine
DX: R07.89 Other chest pain (principal); I10 Essential (primary) hypertension; Z87.891 Personal history of nicotine dependence; Z91.041 Radiographic dye allergy status; Z79.82 Long term (current) use of aspirin; Z79.899 Other long term (current) drug therapy; Z79.890 Hormone replacement therapy
CPT/HCPCS: 36415; 71045; 80053; 83735; 84484; 85025; 93005; 93010; 99285-25; A9270